=== PATIENT | female | born 1965 | race Caucasian/White ===

== ENCOUNTER 2020-01-10 15:26 | Observation (INO) ==
[2020-01-10] MEDS ORDERED: ACETAMINOPHEN 325 MG TABLET PO PRN (17:22)
[2020-01-10] MEDS ORDERED: GLUCAGON 1 MG VIAL IM PRN (17:22)
[2020-01-10] MEDS ORDERED: DEXTROSE 10% 250 ML BAG IV PRN (17:22)
[2020-01-10] MEDS ORDERED: ONDANSETRON 4 MG/2 ML VIAL IV PRN (17:38)
[2020-01-10] MEDS ORDERED: NITROGLYCERIN SL 0.4 MG TABLET SL PRN (18:06)
[2020-01-10] MEDS ORDERED: MAGNESIUM SULF RIDER 2 GM in PREMIX 1 EACH IV PRN (18:28)
[2020-01-10] MEDS ORDERED: MAGNESIUM SULF RIDER 4 GM in PREMIX 1 EACH IV PRN (18:28)
[2020-01-10] MEDS ORDERED: POTASSIUM CHLORIDE 20 MEQ TABLET PO PRN (18:28)
[2020-01-10 19:25] LABS: Apearance,Urine CLEAR (Clear); Bacteria,Urine Occasional /HPF (Few); Bilirubin,Urine Negative (Negative); Blood, Urine Moderate mg/dL (Negative); Glucose,Urine (UA) Negative (Negative); Ketones,Urine Negative (Negative); Nitrite,Urine Negative (Negative); Protein,Urine Negative; RBC,Urine 2 /HPF (0-4); Squamous Epithelial Cell,Urine Occasional /HPF (0-10); Urine Color Straw (Yellow); Urine Specific Gravity 1.005 (1.001-1.035); Urine Urobilinogen < 2.0 EU/DL (0.2-1.0); WBC,Urine 7 /HPF (0-6)
[2020-01-10] MEDS ORDERED: lisinopriL 20 MG TABLET PO SCH (21:00)
[2020-01-10] MEDS ORDERED: ENOXAPARIN 40 MG/0.4 ML SYRINGE SUBCUT SCH (21:00)
[2020-01-10] MEDS ORDERED: ATORVASTATIN 10 MG TABLET PO SCH (21:00)
[2020-01-10 21:17] LABS: Troponin I < 0.015 NG/ML (0.00-0.045)
[2020-01-11 01:42] LABS: Basophils # 0.1 10*3/uL (0.0-0.2); Basophils % 0.8 % (0.0-0.8); Eosinophils # 0.2 10*3/uL (0.0-0.87); Eosinophils % 3.3 % (0.00-10.9); Hematocrit 39.9 VOL% (35.7-47.0); Hemoglobin 13.2 GM/DL (12.0-16.0); Immature Granulocytes % 0.3 %; Immature Granulocytes Absolute 0.02 #; Lymphocytes # 3.7 10*3/uL (1.4-4.0); Lymphocytes % 51.4 % (21.3-54.2); Mean Corpuscular HGB Conc 33.1 GM/DL (32-36); Mean Corpuscular Volume 94.5 FL (87-102); Monocytes % 7.8 % (1.7-12.7); Neutrophils % 36.4 % (38.7-73.9); Platelet Count 217 T/CUMM (130-400); Red Blood Count 4.22 MC/CUMM (3.8-5.5); Red Cell Distribution Width 12.6 % (9.3-17.3); White Blood Count 7.2 T/CUMM (4-12)
[2020-01-11 01:54] LABS: Troponin I < 0.015 NG/ML (0.00-0.045)
[2020-01-11 02:02] LABS: Alanine Aminotransferase 33 U/L (13-56); Albumin 3.5 G/DL (3.4-5.0); Alkaline Phosphatase 54 U/L (45-117); Aspartate Amino Transferase 19 U/L (0-37); Bilirubin,Total < 0.39 MG/DL (0.2-1.0); Blood Urea Nitrogen 16 MG/DL (7-18); Estimated Glom Filtration Rate 68 ML/MIN; Glucose 91 MG/DL (74-106); HDL Cholesterol 43 MG/DL (40-60); Osmolality,Calculated 277.5 MOS/KG (273-304); Risk Ratio 5.21; Total Protein 6.7 G/DL (6.4-8.3); Triglycerides 190 MG/DL (2-150)
[2020-01-11 04:50] LABS: Platelet Estimate Normal
[2020-01-11] MEDS ORDERED: diphenhydrAMINE CAP 25 MG CAPSULE PO ONE (07:45)
[2020-01-11] MEDS ORDERED: DIAZEPAM 5 MG TABLET PO ONE (07:45)
[2020-01-11] MEDS ORDERED: SODIUM CHLORIDE 0.9% 1,000 ML IV SCH (08:00)
[2020-01-11] MEDS ORDERED: NITROGLYCERIN DRIP 50 MG/250 ML BOTTLE IV ONE (08:43)
[2020-01-11] MEDS ORDERED: VERAPAMIL 5 MG/2 ML VIAL ONE (08:43)
[2020-01-11] MEDS ORDERED: LIDOCAINE 1% 20 ML VIAL ONE (08:43)
[2020-01-11] MEDS ORDERED: HEPARIN/NACL 0.9% 2 UNITS/ML 1,000 ML IV ONE (08:43)
[2020-01-11] MEDS ORDERED: PANTOPRAZOLE 40 MG TABLET PO SCH (09:00)
[2020-01-11] MEDS ORDERED: NICOTINE 21 MG/24 HR PATCH TRANSDERM SCH (09:00)
[2020-01-11] MEDS ORDERED: fentaNYL 100 MCG/2 ML VIAL ONE (09:02)
[2020-01-11] MEDS ORDERED: MIDAZOLAM 2 MG/2 ML VIAL ONE (09:02)
[2020-01-11] MEDS ORDERED: ASPIRIN 325 MG TABLET ONE (09:09)
[2020-01-11] MEDS ORDERED: ENOXAPARIN 60 MG/0.6 ML SYRINGE ONE (09:12)
[2020-01-11 13:30] VITALS: BP 100/70
[2020-01-11] MEDS ORDERED: ATORVASTATIN 80 MG TABLET PO SCH (21:00)
[2020-01-12] MEDS ORDERED: ASPIRIN EC 81 MG TABLET PO SCH (09:00)
[2020-01-12] MEDS ORDERED: ISOSORBIDE MONONITRATE 30 MG TABLET PO SCH (09:00)
== END 2020-01-11 14:57 | disposition home or self-care (01) ==
LOC: N.TELEN → SUATTDRO 16:55
PROVIDERS: ADMIT Internal Medicine; ATTEND Family Medicine
PROC: CLCCHCL (ICD-10-PCS; 2020-01-11 09:15)

== ENCOUNTER 2021-06-22 06:48 | Inpatient (IN) ==
[2021-06-12 12:00] LABS: Basophils # 0.1 10*3/uL (0.0-0.2); Basophils % 0.8 % (0.0-0.8); Eosinophils # 0.1 10*3/uL (0.0-0.87); Eosinophils % 1.4 % (0.00-10.9); Hematocrit 41.2 VOL% (35.7-47.0); Hemoglobin 13.7 GM/DL (12.0-16.0); Immature Granulocytes % 0.5 %; Immature Granulocytes Absolute 0.05 #; Lymphocytes # 2.8 10*3/uL (1.4-4.0); Lymphocytes % 29.9 % (21.3-54.2); Mean Corpuscular HGB Conc 33.3 GM/DL (32-36); Mean Corpuscular Volume 94.9 FL (87-102); Mean Platelet Volume 11.7 FL (9.6-12.0); Monocytes % 6.7 % (1.7-12.7); Neutrophils % 60.7 % (38.7-73.9); Platelet Count 211 T/CUMM (130-400); Red Blood Count 4.34 MC/CUMM (3.8-5.5); Red Cell Distribution Width 13.2 % (9.3-17.3); White Blood Count 9.2 T/CUMM (4-12)
[2021-06-12 12:44] LABS: Calcium 9.2 MG/DL (8.5-10.1); Osmolality,Calculated 277.5 MOS/KG (273-304); Potassium 4.6 MMOL/L (3.5-5.1)
[2021-06-12 12:45] LABS: PT Patient Result 10.9 SECS (10.5-12.0)
[~2021-06-22 06:48] MED LIST: DIAZEPAM 5 MG TABLET PO ONE; FAMOTIDINE 20 MG TABLET PO ONE
[2021-06-22] MEDS ORDERED: DIAZEPAM 5 MG TABLET ONE (07:16)
[2021-06-22] MEDS ORDERED: FAMOTIDINE 20 MG TABLET ONE (07:16)
[2021-06-22] MEDS ORDERED: ACETAMINOPHEN 500 MG TABLET ONE (07:16)
[2021-06-22] MEDS ORDERED: DIAZEPAM 5 MG TABLET PO STA (07:28)
[2021-06-22] MEDS ORDERED: FAMOTIDINE 20 MG TABLET PO STA (07:28)
[2021-06-22] MEDS ORDERED: ACETAMINOPHEN 500 MG TABLET PO STA (07:28)
[2021-06-22] MEDS: LACTATED RINGERS 1,000 ML IV SCH ×4 (07:40→22:13)
[2021-06-22] MEDS ORDERED: HEPARIN 5,000 UNIT/1 ML VIAL ONE (08:41)
[2021-06-22] MEDS ORDERED: LIDOCAINE 1% 20 ML VIAL ONE (08:42)
[2021-06-22] MEDS ORDERED: DEXMEDETOMIDINE 200 MCG/2 ML VIAL ONE (08:50)
[2021-06-22] MEDS ORDERED: fentaNYL 100 MCG/2 ML VIAL ONE (08:50)
[2021-06-22] MEDS ORDERED: ROCURONIUM 50 MG/5 ML VIAL IV ONE (08:51)
[2021-06-22] MEDS ORDERED: LIDOCAINE 2% 5 ML VIAL ONE (08:51)
[2021-06-22] MEDS ORDERED: propofoL 200 MG/20 ML VIAL IV ONE (08:51)
[2021-06-22] MEDS ORDERED: HEPARIN/NACL 0.9% 2 UNITS/ML 1,000 UNIT/500 ML BAG IV ONE (08:59)
[2021-06-22] MEDS ORDERED: LIDOCAINE 1% 5 ML VIAL ONE (09:01)
[2021-06-22] MEDS ORDERED: ROPIVACAINE 0.5% 30 ML VIAL ONE (09:01)
[2021-06-22] MEDS ORDERED: KETOROLAC 30 MG/1 ML VIAL ONE (09:47)
[2021-06-22] MEDS ORDERED: PHENYLEPHRINE 1 MG/10 ML SYRINGE IV ONE (10:04)
[2021-06-22] MEDS ORDERED: DEXAMETHASONE 4 MG/1 ML VIAL ONE (10:13)
[2021-06-22] MEDS ORDERED: ONDANSETRON 4 MG/2 ML VIAL ONE (10:13)
[2021-06-22] MEDS ORDERED: HEPARIN 10,000 UNIT/10 ML VIAL ONE (10:16)
[2021-06-22] MEDS ORDERED: LACTATED RINGERS 1,000 ML IV ONE (10:18)
[2021-06-22] MEDS ORDERED: NEOSTIGMINE 10 MG/10 ML VIAL ONE (10:31)
[2021-06-22] MEDS ORDERED: GLYCOPYRROLATE 0.4 MG/2 ML VIAL ONE ×2 (10:31)
[2021-06-22] MEDS ORDERED: PROTAMINE SULFATE 50 MG/5 ML VIAL IV ONE (10:49)
[2021-06-22] MEDS ORDERED: TISSUE ADHESIVE 1 EACH APPLICATOR TOP ONE (10:51)
[2021-06-22] MEDS ORDERED: SEVOFLURANE 1 UNIT/15 MINUTE INH ONE (10:55)
[2021-06-22] MEDS ORDERED: oxyCODONE/ACETAMINOPHEN 5-325 MG TABLET PO PRN ×2 (11:06)
[2021-06-22] MEDS ORDERED: PROMETHAZINE 25 MG/1 ML VIAL IM PRN (11:06)
[2021-06-22] MEDS ORDERED: NALOXONE 0.4 MG/ML VIAL IV PRN (11:06)
[2021-06-22] MEDS ORDERED: NITROGLYCERIN SL 0.4 MG TABLET SL PRN (11:10)
[2021-06-22] MEDS: HYDROmorphone 2 MG/1 ML VIAL IV PRN ×3 (11:27→21:36)
[2021-06-22] MEDS: ONDANSETRON 4 MG/2 ML VIAL IV PRN ×3 (11:28→21:37)
[2021-06-22] MEDS ORDERED: ONDANSETRON 4 MG/2 ML VIAL IV PRN (11:29)
[2021-06-22] MEDS ORDERED: HYDROmorphone 2 MG/1 ML VIAL IV PRN (11:29)
[2021-06-22] MEDS ORDERED: amLODIPine 5 MG TABLET PO SCH (21:00)
[2021-06-22] MEDS ORDERED: ISOSORBIDE MONONITRATE 30 MG TABLET PO SCH (21:00)
[2021-06-22] MEDS ORDERED: ATORVASTATIN 80 MG TABLET PO SCH (21:00)
[2021-06-22] MEDS ORDERED: lisinopriL 20 MG TABLET PO SCH (21:00)
[2021-06-22] MEDS ORDERED: ASPIRIN EC 81 MG TABLET PO SCH (21:00)
[2021-06-23] MEDS: LACTATED RINGERS 1,000 ML IV SCH (06:48)
[2021-06-23 08:06] VITALS: BP 111/69
[2021-06-23] MEDS ORDERED: ZINC GLUCONATE 50 MG TABLET PO SCH (09:00)
[2021-06-23] MEDS ORDERED: ASPIRIN EC 81 MG TABLET PO SCH (09:00)
[2021-06-23] MEDS ORDERED: CLOPIDOGREL 75 MG TABLET PO SCH (09:00)
[2021-06-23] MEDS ORDERED: ASCORBIC ACID 500 MG TABLET PO SCH (09:00)
[2021-06-23] MEDS ORDERED: CHOLECALCIFEROL 1,000 UNIT TABLET PO SCH (09:00)
[2021-06-23] MEDS: HYDROmorphone 2 MG/1 ML VIAL IV PRN (09:31)
[2021-06-23] MEDS: ONDANSETRON 4 MG/2 ML VIAL IV PRN (09:38)
== END 2021-06-23 11:25 | disposition home or self-care (01) | DRG 38 ==
LOC: N.SDSINP 06:48 → N.OR 06:48 → N.SDSINP 06:49 → N.ICU 11:44 → N.3E 17:15
PROVIDERS: ADMIT Surgery; ATTEND Surgery